=== PATIENT | male | born 1945 | race Caucasian/White ===

== ENCOUNTER 2017-06-29 16:46 | Emergency (ER) | payer MEDICARE, BC ==
[2017-06-29] MEDS ORDERED: Albuterol/Ipratropium 3.0-0.5 MG/3 ML Neb Soln NEB ONE (18:17)
--- NOTE | 2017-06-29 18:22 | EDM.PDOC ---
ED HPI GENERAL MEDICAL PROBLEM - General Chief Complaint: Respiratory Problem Stated Complaint: SOB Time Seen by Provider: 06/29/17 18:05 Source of Information: Reports: Patient, Family, Old Records, RN Notes Reviewed History Limitations: Reports: No Limitations - History of Present Illness INITIAL COMMENTS - FREE TEXT/NARRATIVE: 71-year-old gentleman presents emergency department day complaint of shortness of breath he has a known history of chronic obstructive pulmonary disease as well as coronary artery disease was recently admitted to the hospital in [place] approximately one week ago for COPD exacerbation and pneumonia he has been on a combination of antibiotics of Levaquin and doxycycline his completed the course of Levaquin he is still taking the doxycycline he is also on prednisone dose. Those records are pending. He states over the last couple months he's been increasingly more short of breath his primary care is at the [facility] in [place] they do provide him a antibiotic steroid Dosepak of which she has been using more frequently over the last couple months Records available from [facility] show that he was admitted for COPD exacerbation, thought to have developing pneumonia on CT scan and non-ST elevation myocardial infarction thought to be related to demand ischemia. He left the hospital AMA throat Pain Score (Numeric/FACES): 5 - Related Data Allergies Allergy/AdvReac Type Severity Reaction Status Date / Time morphine Allergy Itching Verified 06/29/17 17:30 niacin Allergy Cannot Verified 06/29/17 17:30 Remember Home Meds: Home Meds Aspirin [Ecotrin] 325 mg PO DAILY 12/13/13 [History] Lisinopril [Prinivil] 5 mg PO DAILY 12/13/13 [History] Metoprolol Tartrate 25 mg PO BID 12/13/13 [History] Hydrocodone/Acetaminophen [Vicodin 5-300 mg Tablet] 1 each PO Q4H PRN 12/14/13 [ History] Omeprazole 40 mg PO DAILY 12/14/13 [History] Albuterol [IJD: Albuterol HFA] 2 puff INH Q4H PRN 12/14/16 [History] Divalproex Sodium [Depakote] 1,000 mg PO DAILY 12/14/16 [History] Tamsulosin [Flomax] 0.8 mg PO DAILY 12/14/16 [History] atorvaSTATin [Lipitor] 80 mg PO BEDTIME 12/28/16 [History] Acetaminophen [Acetaminophen Extra Strength] 1,000 mg PO TID 06/29/17 [History] Albuterol/Ipratropium [DuoNeb 3.0-0.5 MG/3 ML] 3 ml INH QID 06/29/17 [History] Budesonide/Formoterol Fumarate [Symbicort 160-4.5 Mcg Inhaler] 2 puff INH BID [History] Doxycycline [Doxycycline Hyclate] 100 mg PO BID 06/29/17 [History] Gabapentin [Neurontin] 100 mg PO BEDTIME 06/29/17 [History] Sulfamethoxazole-Trime 1 tab PO Q48H 06/29/17 [History] Umeclidinium [place] [Incruse Ellipta*] 62.5 mcg IH DAILY 06/29/17 [History] predniSONE [predniSONE] 40 mg PO DAILY 06/29/17 [History] Past Medical History HEENT History: Reports: Cataract, Hard of Hearing Cardiovascular History: Reports: Bypass, CAD, Heart Valve Replacement, High Cholesterol, Hypertension, [place], SOB on Exertion, Stents Respiratory History: Reports: Bronchitis, Recurrent, COPD, Pneumonia, Recurrent , SOB Gastrointestinal History: Reports: Bowel Obstruction, Cholelithiasis, GERD Genitourinary History: Reports: Prostate Disorder Musculoskeletal History: Reports: Back Pain, Chronic, Fracture Neurological History: Reports: Seizure Oncologic (Cancer) History: Reports: Brain, Lung - Past Surgical History HEENT Surgical History: Reports: Cataract Surgery Cardiovascular Surgical History: Reports: Coronary Artery Bypass, Vascular Surgery Respiratory Surgical History: Reports: Lung Resection, Other (See Below) Other Respiratory Surgeries/Procedures: right upper lobe removed GI Surgical History: Reports: Cholecystectomy, Colonoscopy, EGD, Hernia, Abdominal, Small Bowel Social & Family History - Tobacco Use Smoking Status *Q: Former Smoker Years of Tobacco use: 40 Used Tobacco, but Quit: Yes Month Tobacco Last Used: 10/2016 Second Hand Smoke Exposure: No - Caffeine Use Caffeine Use: Reports: Coffee, Soda - Recreational Drug Use Recreational Drug Use: No ED ROS GENERAL - Review of Systems Review Of Systems: See Below Constitutional: Reports: Weakness. Denies: Fever, Chills HEENT: Reports: No Symptoms Respiratory: Reports: Shortness of Breath, Wheezing, Cough, Sputum Cardiovascular: Reports: Dyspnea on Exertion GI/Abdominal: Reports: No Symptoms : Reports: No Symptoms Musculoskeletal: Reports: No Symptoms Skin: Reports: No Symptoms Neurological: Reports: No Symptoms ED EXAM, GENERAL - Physical Exam Exam: See Below Free Text/Narrative:: General: Male, tripoding in mild respiratory distress, alert and oriented x3 HEENT: head is atraumatic normocephalic, eyes pupils equal round reactive to light, sclera clear no conjunctivitis appreciated. Ears hearing aids in place. Nose no septal deviation, nares are clear, no blood present. Mouth mucosa is dry and pink no erythema or exudate noted in soft palate, tongue is midline uvula is midline, dentures in place. Neck: Supple no thyromegaly no tracheal deviation. Nodes: Cervical nodes subclavicular nodes nontender no palpable lymphadenopathy noted. Lungs: Breath sounds are distant I can't appreciate wheezing mid to lower lung sexton bilaterally no crackles noted CV: Regular rate and rhythm S1 and S2 appreciated no murmurs rubs or gallops noted. Abdomen: Soft, obese, nontender, no palpable masses or organomegaly appreciated , no distention no guarding bowel sounds are present, midline laparotomy scar clean dry and intact, spider tattoo around the umbilicus. Neuro: Cranial nerves II through XII grossly intact Skin: Warm and dry, intact Extremities: No lower extremity edema appreciated, pedal pulse is +2. Course - Vital Signs Last Recorded V/S: Last Vital Signs Temp 99.7 F 06/29/17 17:29 Pulse 123 H 06/29/17 23:03 Resp 26 H 06/29/17 23:03 BP 122/77 06/29/17 23:03 Pulse Ox 96 06/29/17 23:03 - Orders/Labs/Meds Orders: Active Orders 24 hr Category Date Time Status EKG Documentation Completion [RC] ASDIRECTED Care 06/29/17 18:25 Active Peripheral IV Care [RC] . DIRECTED Care 06/29/17 20:38 Active RT Aerosol Therapy [RC] ASDIRECTED Care 06/29/17 18:18 Active Ang Chest [CT] Stat Exams 06/29/17 21:23 Ordered Chest 1V Frontal [CR] Urgent Exams 06/29/17 18:14 Taken Sodium Chloride 0.9% [Saline Flush] Med 06/29/17 20:37 Active 10 ml FLUSH ASDIRECTED PRN Peripheral IV Insertion Adult [OM.PC] Urgent Oth 06/29/17 20:37 Ordered EKG 12 Lead [EK] Stat Ther 06/29/17 18:25 Ordered Medication Orders Sodium Chloride (Saline Flush) 10 ml FLUSH ASDIRECTED PRN PRN Reason: Keep Vein Open Last Admin: 06/29/17 20:53 Dose: 10 ml Labs: Laboratory Tests 06/29/17 06/29/17 06/29/17 Range/Units 18:24 18:55 18:55 WBC 8.6 (4.5-11.0) K/uL RBC 4.14 L (4.30-5.90) M/uL Hgb 12.6 (12.0-15.0) g/dL Hct 38.8 L (40.0-54.0) % MCV 94 (80-98) fL MCH 30 (27-31) pg MCHC 33 (32-36) % Plt Count 221 (150-400) K/uL Add Manual Diff Yes Neutrophils % (Manual) 60 (36-66) % Band Neutrophils % 9 (5-11) % Lymphocytes % (Manual) 18 L (24-44) % Monocytes % (Manual) 12 H (2-6) % Eosinophils % (Manual) 1 L (2-4) % Polychromasia D-Dimer, Quantitative 1520 H (0.0-400.0) ng/mL Puncture Site ABG pH (7.350-7.450) ABG pCO2 (35.0-42.0) mmHg ABG pO2 (75.0-100.0) mmHg ABG HCO3 (22.0-26.0) mmol/L ABG Total CO2 (23.0-27.0) mmol/L ABG O2 Saturation (95.0-98.0) % ABG O2 Content (15.0-23.0) %vol ABG Base Excess mm/L ABG Hemoglobin (13.5-18.0) g/dL ABG Oxyhemoglobin % ABG Carboxyhemoglobin (0.0-1.6) % ABG Methemoglobin % Isaias Test O2 Delivery Device Sodium 147 (140-148) mmol/L Potassium 4.6 (3.6-5.2) mmol/L Chloride 108 (100-108) mmol/L Carbon Dioxide 28 (21-32) mmol/L Anion Gap 11.0 (5.0-14.0) mmol/L BUN 28 H D (7-18) mg/dL Creatinine 0.8 (0.8-1.3) mg/dL Est Cr Clr Drug Dosing 86.18 mL/min Estimated GFR (MDRD) > 60 (>60) Glucose 126 H (74-106) mg/dL Lactic Acid (0.4-2.0) mmol/L Calcium 9.1 (8.5-10.1) mg/dL Total Bilirubin 0.6 (0.2-1.0) mg/dL AST 72 H D (15-37) U/L ALT 109 H (12-78) U/L Alkaline Phosphatase 54 (46-116) U/L Troponin I (0.000-0.056) ng/mL NT-Pro-B Natriuret Pep (5-125) pg/mL Total Protein 6.1 L (6.4-8.2) g/dL Albumin 2.9 L (3.4-5.0) g/dL Globulin 3.2 (2.3-3.5) g/dL Albumin/Globulin Ratio 0.9 L (1.2-2.2) 06/29/17 06/29/17 06/29/17 Range/Units 18:55 18:55 20:48 WBC (4.5-11.0) K/uL RBC (4.30-5.90) M/uL Hgb (12.0-15.0) g/dL Hct (40.0-54.0) % MCV (80-98) fL MCH (27-31) pg MCHC (32-36) % Plt Count (150-400) K/uL Add Manual Diff Neutrophils % (Manual) (36-66) % Band Neutrophils % (5-11) % Lymphocytes % (Manual) (24-44) % Monocytes % (Manual) (2-6) % Eosinophils % (Manual) (2-4) % Polychromasia D-Dimer, Quantitative (0.0-400.0) ng/mL Puncture Site Rt.radial ABG pH 7.469 H (7.350-7.450) ABG pCO2 33.8 L (35.0-42.0) mmHg ABG pO2 75.7 (75.0-100.0) mmHg ABG HCO3 24.3 (22.0-26.0) mmol/L ABG Total CO2 21.6 L (23.0-27.0) mmol/L ABG O2 Saturation 94.6 L (95.0-98.0) % ABG O2 Content 16.4 (15.0-23.0) %vol ABG Base Excess 1.5 mm/L ABG Hemoglobin 12.5 L (13.5-18.0) g/dL ABG Oxyhemoglobin 93.2 % ABG Carboxyhemoglobin 0.9 (0.0-1.6) % ABG Methemoglobin 0.6 % Isaias Test Passed O2 Delivery Device Room air Sodium (140-148) mmol/L Potassium (3.6-5.2) mmol/L Chloride (100-108) mmol/L Carbon Dioxide (21-32) mmol/L Anion Gap (5.0-14.0) mmol/L BUN (7-18) mg/dL Creatinine (0.8-1.3) mg/dL Est Cr Clr Drug Dosing mL/min Estimated GFR (MDRD) (>60) Glucose (74-106) mg/dL Lactic Acid 5.2 H (0.4-2.0) mmol/L Calcium (8.5-10.1) mg/dL Total Bilirubin (0.2-1.0) mg/dL AST (15-37) U/L ALT (12-78) U/L Alkaline Phosphatase (46-116) U/L Troponin I 0.062 H* (0.000-0.056) ng/mL NT-Pro-B Natriuret Pep 533 H (5-125) pg/mL Total Protein (6.4-8.2) g/dL Albumin (3.4-5.0) g/dL Globulin (2.3-3.5) g/dL Albumin/Globulin Ratio (1.2-2.2) 06/29/17 Range/Units 22:23 WBC (4.5-11.0) K/uL RBC (4.30-5.90) M/uL Hgb (12.0-15.0) g/dL Hct (40.0-54.0) % MCV (80-98) fL MCH (27-31) pg MCHC (32-36) % Plt Count (150-400) K/uL Add Manual Diff Neutrophils % (Manual) (36-66) % Band Neutrophils % (5-11) % Lymphocytes % (Manual) (24-44) % Monocytes % (Manual) (2-6) % Eosinophils % (Manual) (2-4) % Polychromasia D-Dimer, Quantitative (0.0-400.0) ng/mL Puncture Site ABG pH (7.350-7.450) ABG pCO2 (35.0-42.0) mmHg ABG pO2 (75.0-100.0) mmHg ABG HCO3 (22.0-26.0) mmol/L ABG Total CO2 (23.0-27.0) mmol/L ABG O2 Saturation (95.0-98.0) % ABG O2 Content (15.0-23.0) %vol ABG Base Excess mm/L ABG Hemoglobin (13.5-18.0) g/dL ABG Oxyhemoglobin % ABG Carboxyhemoglobin (0.0-1.6) % ABG Methemoglobin % Isaias Test O2 Delivery Device Sodium (140-148) mmol/L Potassium (3.6-5.2) mmol/L Chloride (100-108) mmol/L Carbon Dioxide (21-32) mmol/L Anion Gap (5.0-14.0) mmol/L BUN (7-18) mg/dL Creatinine (0.8-1.3) mg/dL Est Cr Clr Drug Dosing mL/min Estimated GFR (MDRD) (>60) Glucose (74-106) mg/dL Lactic Acid (0.4-2.0) mmol/L Calcium (8.5-10.1) mg/dL Total Bilirubin (0.2-1.0) mg/dL AST (15-37) U/L ALT (12-78) U/L Alkaline Phosphatase (46-116) U/L Troponin I 0.057 H (0.000-0.056) ng/mL NT-Pro-B Natriuret Pep (5-125) pg/mL Total Protein (6.4-8.2) g/dL Albumin (3.4-5.0) g/dL Globulin (2.3-3.5) g/dL Albumin/Globulin Ratio (1.2-2.2) Meds: Medications Generic Name Dose Route Start Last Admin Trade Name Freq PRN Reason Stop Dose Admin Sodium Chloride 10 ml 06/29/17 20:37 06/29/17 20:53 Saline Flush FLUSH 10 ml ASDIRECTED PRN Administration Keep Vein Open Discontinued Medications Generic Name Dose Route Start Last Admin Trade Name Mikaq PRN Reason Stop Dose Admin Albuterol/Ipratropium 3 ml 06/29/17 18:17 06/29/17 18:21 Duoneb 3.0-0.5 Mg/3 Ml NEB 06/29/17 18:18 3 ml ONETIME ONE Administration Furosemide 40 mg 06/29/17 20:37 06/29/17 20:53 Lasix IVPUSH 06/29/17 20:38 40 mg ONETIME ONE Administration Departure - Departure Time of Disposition: 23:10 Disposition: DC/Tfer to Acute Hospital 02 Condition: Poor Clinical Impression: Dyspnea Qualifiers: Dyspnea type: shortness of breath Qualified Code(s): R06.02 - Shortness of breath; R06.00 - Dyspnea, unspecified; R06.01 - Orthopnea - Discharge Information Referrals: PCP,None [Primary Care Provider] - Forms: ED Department Discharge - My Orders Last 24 Hours: My Active Orders 06/29/17 18:14 Chest 1V Frontal [CR] Urgent 06/29/17 18:18 RT Aerosol Therapy [RC] ASDIRECTED 06/29/17 18:25 EKG Documentation Completion [RC] ASDIRECTED EKG 12 Lead [EK] Stat 06/29/17 20:37 Sodium Chloride 0.9% [Saline Flush] 10 ml FLUSH ASDIRECTED PRN Peripheral IV Insertion Adult [OM.PC] Urgent 06/29/17 20:38 Peripheral IV Care [RC] . DIRECTED 06/29/17 21:23 Ang Chest [CT] Stat - Assessment/Plan Last 24 Hours: My Active Orders 06/29/17 18:14 Chest 1V Frontal [CR] Urgent 06/29/17 18:18 RT Aerosol Therapy [RC] ASDIRECTED 06/29/17 18:25 EKG Documentation Completion [RC] ASDIRECTED EKG 12 Lead [EK] Stat 06/29/17 20:37 Sodium Chloride 0.9% [Saline Flush] 10 ml FLUSH ASDIRECTED PRN Peripheral IV Insertion Adult [OM.PC] Urgent 06/29/17 20:38 Peripheral IV Care [RC] . 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 currently on radiation chemotherapy Etiology = unclear etiology Manifestations = dyspnea Location of injury = Home Lab values = d-dimer elevated at 15-0 probably related to the cancer pH 7.46 PCO2 3 3.8 PCO2 75.7 and a bicarbonate 24.3 lactic acid at 5.2 consistent with lactic acidosis AST elevated at 72 ALTs elevated at 109 consistent elevated liver enzymes initial troponin elevated 0.062 second troponin 2 hours later 0.057 probably related to demand ischemia BNP elevated at 533 consistent with fluid overload albumin low at 2.9 consistent hypoalbuminemia EKG demonstrates minimal ST elevations in V1 and V2 ST depressions in the 45 and 6 no old EKGs are available for comparison Plan Initially called and discussed the case with the [facility] they were unable to accept this patient due to complexity, called and discussed the patient with Dr. Green hospitalist station mechanic apprentice at [facility] kindly accepted the patient in transport he will be transported via EMS ground Patient was in agreement with the plan all questions were answered,. This note was dictated using [employer] voice recognition software please call with any questions.
[2017-06-29] MEDS ORDERED: Furosemide 40 MG/4 ML VIAL IVPUSH ONE (20:37)
[2017-06-29] MEDS ORDERED: Sodium Chloride 0.9% 10 ML Syringe FLUSH PRN (20:37)
[2017-06-29] MEDS ORDERED: HYDROmorphone 1 MG/ML Syringe IVPUSH ONE (23:11)
[2017-06-29 23:20] VITALS: BP 128/77
--- NOTE | 2017-06-30 09:58 | CR ---
Chest 1V Frontal INDICATION: sob FINDINGS: Comparison 12/13/2013. Sternotomy with fractured upper sternotomy wire. Heart size borderlin e enlarged. Faint hazy density in left mid and lower lung; findings suggest early infiltrate or atele ctasis. Scarring in the right midlung. Chest otherwise negative. Follow-up PA and lateral chest x-ray would be helpful clinically feasible.
== END 2017-06-29 23:41 ==
LOC: JP.ED 16:46
DX: R06.02 Shortness of breath (principal); J44.9 Chronic obstructive pulmonary disease, unspecified; I25.10 Atherosclerotic heart disease of native coronary artery without angina pectoris; Z87.891 Personal history of nicotine dependence; Z79.82 Long term (current) use of aspirin; Z88.5 Allergy status to narcotic agent; Z88.8 Allergy status to other drugs, medicaments and biological substances; Z95.4 Presence of other heart-valve replacement; Z87.01 Personal history of pneumonia (recurrent)
CPT/HCPCS: 36415; 36600; 71010; 80053; 82803; 83605; 83880; 84484; 85025; 85379; 93005; 94640; 96374; 96375; 99285; J1170; J1940; J7050; J7620; 93010